=== PATIENT | female | born 1985 | race Caucasian/White ===

== ENCOUNTER 2017-02-05 18:14 | Emergency (ER) | payer SELFPAY ==
[~2017-02-05] VITALS: Ht 149.9 cm; Wt 77.1 kg
--- NOTE | 2017-02-05 18:20 | NUR ---
alexis nicolea a grocery store due to non traumatic left leg pain since today, 04/25, non radiating. Patient is aao3. Appears in no apparent distress, respiration even and unalbored. skin is warm to touch and non dipahoretic. afebrile. vss. gowned and placed in tele monitor.
[2017-02-05] MEDS ORDERED: KETOROLAC TROMETHAMINE INJ 60 MG/2 ML VIAL IM ONE ×2 (18:30)
[2017-02-05] MEDS ORDERED: HYDROCODONE/APAP 5/325MG 1 EACH TABLET ONE (18:30)
[2017-02-05] MEDS ORDERED: HYDROCODONE/APAP 5/325MG 1 EACH TABLET PO ONE (18:30)
--- NOTE | 2017-02-05 18:40 | NUR ---
medicated pt as ordered
[2017-02-05 18:46] VITALS: BP 102/54
--- NOTE | 2017-02-05 18:46 | NUR ---
Patient discharged to home in stable condition. Written and verbal after care instructions given. Patient verbalizes understanding of instruction.
[2017-02-06] MEDS ORDERED: DORZ10DR13 LEFTEYE (16:05)
[2017-02-06] MEDS ORDERED: PRED5TAB48 PO (16:05)
[2017-02-06] MEDS ORDERED: BRIM5DRO3 LEFTEYE (16:05)
[2017-02-06] MEDS ORDERED: PRED5DRO7 EACHEYE (16:05)
== END 2017-02-05 18:48 | disposition home or self-care (01) ==
LOC: ER 18:17
DX: M79.1 Myalgia (principal); G89.29 Other chronic pain; H57.12 Ocular pain, left eye; Z88.2 Allergy status to sulfonamides; Z88.6 Allergy status to analgesic agent; F17.210 Nicotine dependence, cigarettes, uncomplicated; F10.20 Alcohol dependence, uncomplicated
CPT/HCPCS: 96372; 99283; A4606; J1885; Z7610

== ENCOUNTER 2017-02-05 23:38 | Inpatient (IN) | payer MEDICAID ==
[~2017-02-05] VITALS: Ht 149.9 cm; Wt 79.4 kg
--- NOTE | 2017-02-05 23:54 | NUR ---
31 yo female bb self. pt is alert x 3, c/o upper abd pain with nausea. pt ambulated to er bed with steady gait, skin warm and dry, rr even and unlabored. pt gowned,placed on color television console monitor. awaiting orders from provider, will continue to monitor
[2017-02-06] MEDS ORDERED: MORPHINE SULFATE INJ 2 MG/ML DISP.SYRIN ONE (00:07)
[2017-02-06] MEDS ORDERED: MORPHINE SULFATE INJ 4 MG/ML DISP.SYRIN ONE (00:08)
[2017-02-06] MEDS ORDERED: IV NS 0.9% 1,000 ML ONE ×2 (00:08→03:30)
[2017-02-06] MEDS ORDERED: ONDANSETRON HCL/PF 4 MG/2 ML VIAL ONE ×4 (00:08→06:15)
[2017-02-06] MEDS ORDERED: MORPHINE SULFATE INJ 2 MG/ML DISP.SYRIN IV ONE (00:30)
[2017-02-06] MEDS ORDERED: ONDANSETRON HCL/PF 4 MG/2 ML VIAL IVP ONE (00:30)
[2017-02-06] MEDS ORDERED: IV NS 0.9% 1,000 ML BAG IV ONE ×2 (00:30→03:30)
--- NOTE | 2017-02-06 00:44 | NUR ---
22G RIGHT WRIST IV STARTED. MEDICATED PT ORDERED
[2017-02-06 00:49] LABS: BASOPHILS % (AUTO) 0.4 % (0.0-2.0); EOSINOPHILS # (AUTO) 0.2 /CMM (0.0-0.7); EOSINOPHILS % (AUTO) 2.4 % (0.0-6.0); HEMATOCRIT 35 % (33-45); HEMOGLOBIN 11.5 g/dL (11.5-14.8); LYMPHOCYTES # (AUTO) 2.4 /CMM (0.8-4.8); LYMPHOCYTES % (AUTO) 25.7 % (20.0-44.0); MEAN CORPUSCULAR HEMOGLOBIN 26 PG (26.0-33.0); MEAN CORPUSCULAR HGB CONC 32 g/dl (31.0-36.0); MEAN CORPUSCULAR VOLUME 79 fL (82-100); MONOCYTES # (AUTO) 1.1 /CMM (0.1-1.30); MONOCYTES % (AUTO) 11.3 % (2.0-12.0); NEUTROPHILS # (AUTO) 5.6 /CMM (1.8-8.9); NEUTROPHILS % (AUTO) 60.2 % (43.0-81.0); PLATELET COUNT (AUTO) 328 /CMM (150-450); RDW COEFFICIENT OF VARIATION 16.7 (11.5-15.0); WHITE BLOOD COUNT (AUTO) 9.4 K/uL (4.3-11.0)
[2017-02-06 00:56] LABS: APPEARANCE,URINE TURBID (CLEAR); BILIRUBIN,URINE 1+ (NEGATIVE); BLOOD, URINE NEGATIVE Ery/uL (NEGATIVE); COLOR,URINE DARK YELLO (YELLOW); KETONES,URINE 1+ (NEGATIVE); LEUKOCYTE ESTERASE ,URINE NEGATIVE (NEGATIVE); NITRITE, URINE NEGATIVE (NEGATIVE); PH,URINE 5.5 (5.0-8.0); PROTEIN,URINE TRACE mg/dl (NEGATIVE); UGLUCOSE NEGATIVE (NEGATIVE); UROBILINOGEN,URINE 0.2 EU/dL (0.2)
[2017-02-06 01:01] LABS: CALCIUM, SERUM 8.7 mg/dL (8.5-10.1); CREATININE 1.1 mg/dL (0.6-1.3); POTASSIUM 3.6 mmol/L (3.5-5.1)
[2017-02-06 01:03] LABS: PREGNANCY TEST URINE QUAL NEGATIVE (NEGATIVE)
[2017-02-06 01:07] LABS: BACTERIA,URINE None seen /HPF (None Seen); MUCUS,URINE Few /LPF (None Seen); RBC,URINE 0-3 /HPF (0-2); SQUAMOUS EPITHELIAL CELL,UR Few /HPF (None Seen)
[2017-02-06 01:10] LABS: ALBUMIN 3.1 g/dL (3.4-5.0); BILIRUBIN,DIRECT 0.1 mg/dL (0.0-0.2); BILIRUBIN,TOTAL 0.4 mg/dL (0.2-1.0); TOTAL PROTEIN, SERUM 6.7 g/dL (6.4-8.2)
[2017-02-06 01:11] LABS: PROTHROMBIN TIME 10.7 SECS (9.5-12.7)
[2017-02-06] MEDS ORDERED: HYDROMORPHONE 1 MG/1 ML DISP.SYRIN ONE (03:01)
[2017-02-06] MEDS ORDERED: IV SET PRIMARY PUMP SET 1 EA INFUS.SET MC ONE ×2 (03:30→10:33)
[2017-02-06] MEDS ORDERED: HYDROMORPHONE 1 MG/1 ML DISP.SYRIN IV ONE (03:30)
[2017-02-06] MEDS ORDERED: ONDANSETRON HCL/PF 4 MG/2 ML VIAL IV ONE ×2 (03:30→06:30)
[2017-02-06] MEDS ORDERED: IOHEXOL-300 100 ML VIAL IV ONE (03:41)
[2017-02-06] MEDS ORDERED: IV NS 0.9% 250 ML IV ONE (03:41)
--- NOTE | 2017-02-06 03:45 | NUR ---
MEDICATED PT ORDERED
[2017-02-06] MEDS ORDERED: BARIUM SULFATE SUSP 450 ML BOTTLE PO ONE (03:55)
[2017-02-06] MEDS ORDERED: LORAZEPAM INJ 2 MG/ML VIAL ONE (04:09)
--- NOTE | 2017-02-06 05:30 | NUR ---
PT TRANSPORTED TO CT VIA GURNEY BY RADIOLOGY TEAM
--- NOTE | 2017-02-06 06:06 | NUR ---
YARDER BOSS NEYDA TAVARES
[2017-02-06] MEDS ORDERED: PANTOPRAZOLE 40 MG VIAL ONE (06:15)
--- NOTE | 2017-02-06 06:15 | NUR ---
REPORT GIVEN TO MS JERRY FOR TRACY
--- NOTE | 2017-02-06 06:23 | NUR ---
PT TRANSPORTED TO MS ROOM 208 WITHOUT INCIDENT
[2017-02-06] MEDS ORDERED: PANTOPRAZOLE 40 MG VIAL IV ONE (06:30)
[2017-02-06] MEDS ORDERED: MAG HYDROX/AL HYDROX/SIMETH 30 ML UDC PO PRN (07:00)
[2017-02-06] MEDS ORDERED: Z GUARD REMEDY 2 OZ OINT TP PRN (07:00)
[2017-02-06] MEDS ORDERED: HYDROCODONE/APAP 5/325MG 1 EACH TABLET PO PRN (07:00)
[2017-02-06] MEDS ORDERED: ZOLPIDEM TARTRATE 5 MG TABLET PO PRN (07:00)
[2017-02-06] MEDS: PANTOPRAZOLE 40 MG TABLET.DR PO SCH (07:30)
--- NOTE | 2017-02-06 07:30 | NUR ---
AM RN NOTE Received patient awake, A/O X3 verbally responsive. Report given by previous shift RN that pt came in to unit @ 0648. Denies any pain at this time. IV site intact and patent. Will continue to monitor.
[2017-02-06 08:00] VITALS: BP 120/70
[2017-02-06 08:17] LABS: BASOPHILS % (AUTO) 0.4 % (0.0-2.0); EOSINOPHILS # (AUTO) 0.2 /CMM (0.0-0.7); EOSINOPHILS % (AUTO) 2.8 % (0.0-6.0); HEMATOCRIT 34 % (33-45); LYMPHOCYTES # (AUTO) 1.6 /CMM (0.8-4.8); LYMPHOCYTES % (AUTO) 20.5 % (20.0-44.0); MEAN CORPUSCULAR HEMOGLOBIN 26 PG (26.0-33.0); MEAN CORPUSCULAR HGB CONC 33 g/dl (31.0-36.0); MEAN CORPUSCULAR VOLUME 79 fL (82-100); MONOCYTES # (AUTO) 0.7 /CMM (0.1-1.30); MONOCYTES % (AUTO) 8.8 % (2.0-12.0); NEUTROPHILS # (AUTO) 5.2 /CMM (1.8-8.9); NEUTROPHILS % (AUTO) 67.5 % (43.0-81.0); PLATELET COUNT (AUTO) 269 /CMM (150-450); RDW COEFFICIENT OF VARIATION 17.1 (11.5-15.0); RED BLOOD CELL COUNT(AUTO) 4.22 MIL/uL (4.0-5.2); WHITE BLOOD COUNT (AUTO) 7.7 K/uL (4.3-11.0)
[2017-02-06 08:33] LABS: CREATININE 0.9 mg/dL (0.6-1.3); MAGNESIUM 1.7 mg/dL (1.8-2.4); PHOSPHORUS 3.8 mg/dL (2.5-4.9); POTASSIUM 3.7 mmol/L (3.5-5.1)
[2017-02-06] MEDS: IV NS 0.9% 1,000 ML IV PRN (10:44)
[2017-02-06] MEDS ORDERED: SECONDARY IV SET 1 EA INFUS.SET MC ONE (11:57)
[2017-02-06] MEDS: Magnesium 1GM/D5W 100ML PREMIX 100 ML IV SCH ×2 (12:01→14:43)
--- NOTE | 2017-02-06 13:15 | NUR ---
AM RN NOTE Patient seen and assessed by Dr. Kwan () with new orders. Patient stated she will sign consent after taking a shower. Pt went to take a shower as approved by Dr. Ham.
--- NOTE | 2017-02-06 14:22 | NUR ---
AM RN NOTE Pt continued to take shower at this time.
--- NOTE | 2017-02-06 15:30 | NUR ---
AM RN NOTE Pt awake, A/O X3. Attempted to insert NG tube but pt refused. Called Dr. Mays (GI) made aware that pt refusing NG Tube insertion with NNO at this time.
[2017-02-06] MEDS: HYDROMORPHONE 1 MG/1 ML DISP.SYRIN IV PRN (15:45)
[2017-02-06 16:00] VITALS: BP 126/71
[2017-02-06] MEDS ORDERED: PRED5TAB48 PO (16:05)
[2017-02-06] MEDS ORDERED: PRED5DRO7 EACHEYE (16:05)
[2017-02-06] MEDS ORDERED: BRIM5DRO3 LEFTEYE (16:05)
[2017-02-06] MEDS ORDERED: DORZ10DR13 LEFTEYE (16:05)
--- NOTE | 2017-02-06 16:20 | NUR ---
AM RN NOTE Reconcile meds entered and Dr. Ham made aware. Pt's medications given to Eda @ pharmacy.
[2017-02-06] MEDS: ONDANSETRON HCL/PF 4 MG/2 ML VIAL IVP PRN (16:29)
--- NOTE | 2017-02-06 17:00 | NUR ---
AM RN NOTE Patient signed consent for EGD & Anesthesia.
[2017-02-06] MEDS: TIMOLOL MAL/DORZOLAM HCL OPHTH 10 ML BOTTLE LEFTEYE SCH (18:03)
[2017-02-06] MEDS: BRIMONIDINE TARTRATE OPHT SOLN 5 ML BOTTLE LEFTEYE SCH (18:04)
[2017-02-06] MEDS: prednisoLONE ACET 1% OPHT DROP 5 ML BOTTLE EACHEYE SCH ×2 (18:05→20:27)
--- NOTE | 2017-02-06 18:20 | NUR ---
AM RN NOTE Patient awake, noted with temp 100.1 @ 1745 cooling measures done. Re-checked temp at this time with 101.[address] Ham with his exchange, awaiting for call back.
--- NOTE | 2017-02-06 18:29 | NUR ---
AM RN NOTE Received call from Dr. Ham with new order for Tylenol suppository x1 now.
[2017-02-06] MEDS ORDERED: ACETAMINOPHEN 650 MG/SUPP.RECT RC ONE (18:30)
--- NOTE | 2017-02-06 18:45 | NUR ---
AM RN NOTE Tylenol suppository given, will continue to monitor.
[2017-02-06 20:00] VITALS: BP 107/51
[2017-02-07] MEDS: ONDANSETRON HCL/PF 4 MG/2 ML VIAL IVP PRN ×2 (03:05→08:54)
[2017-02-07] MEDS: HYDROMORPHONE 1 MG/1 ML DISP.SYRIN IV PRN ×4 (03:05→14:10)
--- NOTE | 2017-02-07 04:30 | NUR ---
MS RN NOTES PT STATES "MY IV WAS SWOLLEN AND I DIDN'T GET MY MEDICINE." CALLED LISA GUSMAN LEGUILLON DEBEADER FOR [facility] PT REQUESTING FOR ANOTHER SHOT OF DILAUDID AND ZOFRAN AFTER HER 3 AM DOSE. AWAITING FOR RESPONSE.
--- NOTE | 2017-02-07 05:00 | NUR ---
MS RN NOTES CALLED LISA GUSMAN AGAIN RE PT REQUESTING FOR ANOTHER SHOT OF DILAUDID AND ZOFRAN. SPOKE WITH LISA GUSMAN. NO NEW ORDERS FOR PAIN AND NAUSEA MEDICINE AT THIS TIME. PT MADE AWARE. WILL CONTINUE TO MONITOR.
--- NOTE | 2017-02-07 06:31 | NUR ---
MS RN NOTES AWAKE & RESPONSIVE. NOT IN ANY DISTRESS. NO SOB NOTED. DENIES ANY PAIN OR DISCOMFORT AT THIS TIME. KEPT ON NPO WITH IVF INFUSING WELL. MONITORED ACCORDINGLY. CALL LIGHT WITHIN REACH. BED IN LOWEST POSITION. SR UP X 2 FOR SAFETY. WILL ENDORSE TO NEXT SHIFT.
--- NOTE | 2017-02-07 07:25 | NUR ---
MS RN OPENING NOTES RECEIVED PT. FROM NIGHTSHIFT NURSE IN STABLE CONDITION. NO SOB OR SIGNS OF DISTRESS NOTED. IV INTACT AND PATENT. NO REDNESS OR INFILTRATION NOTED. CURRENTLY AWAITING EGD PROCEDURE. PT. REPORTS NAUSEA. WILL ADMINISTER ZOFRAN 4MG ORDERED. BD IN LOW LOCKED POSITION, SIDE RAILS UP X2, CALL LIGHT WITHIN REACH. WILL CONTINUE TO MONITOR.
[2017-02-07] MEDS: PANTOPRAZOLE 40 MG TABLET.DR PO SCH (07:30)
[2017-02-07 07:51] LABS: BASOPHILS % (AUTO) 0.2 % (0.0-2.0); EOSINOPHILS # (AUTO) 0.2 /CMM (0.0-0.7); EOSINOPHILS % (AUTO) 1.7 % (0.0-6.0); HEMATOCRIT 37 % (33-45); HEMOGLOBIN 12.2 g/dL (11.5-14.8); LYMPHOCYTES # (AUTO) 1.5 /CMM (0.8-4.8); LYMPHOCYTES % (AUTO) 15.1 % (20.0-44.0); MEAN CORPUSCULAR HEMOGLOBIN 25 PG (26.0-33.0); MEAN CORPUSCULAR HGB CONC 33 g/dl (31.0-36.0); MEAN CORPUSCULAR VOLUME 77 fL (82-100); MONOCYTES # (AUTO) 0.9 /CMM (0.1-1.30); MONOCYTES % (AUTO) 9.2 % (2.0-12.0); NEUTROPHILS # (AUTO) 7.1 /CMM (1.8-8.9); NEUTROPHILS % (AUTO) 73.8 % (43.0-81.0); PLATELET COUNT (AUTO) 305 /CMM (150-450); RDW COEFFICIENT OF VARIATION 17.1 (11.5-15.0); WHITE BLOOD COUNT (AUTO) 9.7 K/uL (4.3-11.0)
[2017-02-07 08:00] VITALS: BP 114/67
[2017-02-07 08:04] LABS: CALCIUM, SERUM 8.6 mg/dL (8.5-10.1); CREATININE 0.8 mg/dL (0.6-1.3); PHOSPHORUS 3.3 mg/dL (2.5-4.9)
[2017-02-07 08:27] VITALS: BP 114/67
[2017-02-07] MEDS: BRIMONIDINE TARTRATE OPHT SOLN 5 ML BOTTLE LEFTEYE SCH ×2 (08:55→18:12)
[2017-02-07] MEDS: TIMOLOL MAL/DORZOLAM HCL OPHTH 10 ML BOTTLE LEFTEYE SCH ×2 (08:55→18:10)
[2017-02-07] MEDS: prednisoLONE ACET 1% OPHT DROP 5 ML BOTTLE EACHEYE SCH ×4 (09:00→21:08)
[2017-02-07] MEDS: predniSONE 5 MG TABLET PO SCH (09:00)
--- NOTE | 2017-02-07 09:03 | NUR ---
MS RN NOTES PT. TAKEN DOWN IN STABLE CONDITION FOR SCHEDULED EGD
[2017-02-07] MEDS ORDERED: SUCCINYLCHOLINE CHLORIDE 20 MG/ML VIAL ONE (09:08)
--- NOTE | 2017-02-07 10:01 | NUR ---
MS RN NOTES PT. BACK FROM EGD IN STABLE CONDITION. ORDERS TO RESUMES REGULAR DIET AND ALL ORDERS PRIOR TO PROCEDURE.
--- NOTE | 2017-02-07 10:43 | NUR ---
MS RN NOTES PT.S 0900 STEROID EYE DROPS WENT MISSING FROM PT.'S CASSETTE. PHARMACY WAS CALLED 2X AND STATES THEY WILL DELIVER IT. WILL F/U
[2017-02-07] MEDS: IV NS 0.9% 1,000 ML IV PRN (11:29)
--- NOTE | 2017-02-07 12:04 | NUR ---
MS RN NOTES PT. COMPLAINS OF NAUSEA. NO EMESIS PRESENT AT THIS TIME. SHE ALSO COMPLAINED OF INCREASE FEVER. TEMPERATURE WAS CHECKED AND WAS 99.8. IT WAS RECHECKED AND IS NOW 100.8. TYLENOL WAS OFFERED TO PT. BU SHE REFUSES AT THIS TIME AND STATES THAT IT WILL MAKE HER THROW UP. DR. MARSHALL WAS MADE AWARE AND ORDERED THAT I CHANGE HER ZOFRAN 4MG FROM Q6 TO Q4. FOR THE RISE IN TEMPERATURE, HE SAYS "CONTINUE TO MONITOR". WILL CONTINUE TO MONITOR AND CARRY OUT ORDERS
[2017-02-07] MEDS ORDERED: ONDANSETRON HCL/PF 4 MG/2 ML VIAL IVP PRN (13:00)
[2017-02-07] MEDS ORDERED: ANESTHESIA TRAY IN PYXIS 1 EA TRAY MC ONE (14:01)
[2017-02-07] MEDS: ACETAMINOPHEN 325 MG TABLET PO PRN (15:15)
[2017-02-07 16:04] VITALS: BP 93/45
--- NOTE | 2017-02-07 19:35 | NUR ---
MS RN CLOSING NOTES PT. IN STABLE CONDITION. ALL NEEDS MET AND ORDERS CARRIED OUT ACCORDINGLY. CURRENT IV IS INFILTRATED. WILL ENDORSE TO NIGHTSHIFT NURSE FOR TRACY AND REINSERTION OF IV.
--- NOTE | 2017-02-07 19:35 | NUR ---
MS RN NOTES RECEIVED PT IN BED, AWAKE, A/O X 4. VERBALLY RESPONSIVE. STABLE AT THIS TIME. NO DISTRESS, NO SOB NOTED. RESPIRATION IS EVEN AND UNLABORED. ON REGULAR DIET TOLERATED WELL. ALL NEEDS ATTENDED. CALL LIGHT WITHIN REACH. SAFETY PRECAUTIONS OBSERVED. WILL CONTINUE TO MONITOR.
--- NOTE | 2017-02-07 21:00 | NUR ---
ATTEMPTED TO INSERT IV ON LEFT HAND AND RIGHT HAND X 3 ATTEMPT , UNSUCCESSFUL. CALLED BENEFITS CONSULTING ANALYST TO START IV , PER HERIBERTO HE'LL BE HERE SOON.
--- NOTE | 2017-02-07 21:10 | NUR ---
LAURA LOUIS RN ATTEMPTED TO INSERT IV ON PT'S LEFT HAND, UNSUCCESSFUL. PT REFUSED TO HAVE AN IV STARTED ON BILATERAL ANTECUBITAL AND UPPER ARM, RISK AND BENEFITS EXPLAINED, PT STILL REFUSES TO HAVE AN IV STARTED ON THE ANTECUBITAL, AND UPPER ARM. PT JUST WANTED TO HAVE AN IV INSERTED ON HER HAND. PLACED A CALL TO ICU FOR IV INSERTION. JERRY CARRINGTON WILL BE HERE SOON.
[2017-02-07 22:00] VITALS: BP 92/54
--- NOTE | 2017-02-07 22:00 | NUR ---
JERRY CARRINGTON AND JERRY CLEMENTS ATTEMPTED TO INSERT IV ON THE PATIENT, UNSUCCESSFUL. PT REFUSED IV INSERTION AT ALL. RISK AND BENEFITS EXPLAINED. PT STILL REFUSED. WILL ASK PT AGAIN LATER. PT IS ON REGULAR DIET , ENCOURAGED FLUID INTAKE.
--- NOTE | 2017-02-08 00:15 | NUR ---
MS RN NOTES PT ASLEEP AT THIS TIME, STABLE. AROUSES EASILY. NO C/O PAIN OR DISCOMFORT AT THIS TIME. SITTER AT ED SIDE . WILL CONT TO MONITOR.
[2017-02-08] MEDS: ACETAMINOPHEN 325 MG TABLET PO PRN (04:04)
--- NOTE | 2017-02-08 06:24 | NUR ---
MS RN NOTES PT IN BED, ASLEEP AT THIS TIME, AROUSES EASILY. A/O X 4. VERBALLY RESPONSIVE. STABLE AT THIS TIME. NO DISTRESS, NO SOB NOTED. RESPIRATION IS EVEN AND UNLABORED. ON REGULAR DIET TOLERATED WELL. ALL NEEDS ATTENDED. NO C/O PAIN OR DISCOMFORT AT THIS TIME. CALL LIGHT WITHIN REACH. SITTER AT BED SIDE. SAFETY PRECAUTIONS OBSERVED. WILL ENDORSE TO NEXT SHIFT FOR TRACY.
--- NOTE | 2017-02-08 07:10 | NUR ---
RN MS NOTES PATIENT IN BED, ALERT AND ORIENTED, NO DISTRESS NOTED, NO S/SX OF PAIN, ENDORSED BY SCRAP HANDLERTHERMOFORMING MACHINE OPERATOR, PATIENT REFUSED IV TO BE INSERTED ON BILATERAL ARMS, WILL OFFER IV INSERTION LATER, NEEDS ATTENDED AND MET, CALL LIGHT WITHIN REACH, WILL CONTINUE TO MONITOR.
[2017-02-08 08:00] VITALS: BP 95/57
[2017-02-08] MEDS: predniSONE 5 MG TABLET PO SCH (08:22)
[2017-02-08] MEDS: PANTOPRAZOLE 40 MG TABLET.DR PO SCH (08:22)
[2017-02-08] MEDS: prednisoLONE ACET 1% OPHT DROP 5 ML BOTTLE EACHEYE SCH ×2 (08:24→14:02)
[2017-02-08] MEDS: TIMOLOL MAL/DORZOLAM HCL OPHTH 10 ML BOTTLE LEFTEYE SCH (08:25)
[2017-02-08] MEDS: BRIMONIDINE TARTRATE OPHT SOLN 5 ML BOTTLE LEFTEYE SCH (08:25)
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
--- NOTE | 2017-02-08 16:15 | NUR ---
RN MS NOTES RECEIVED DISCHARGE ORDER FROM DR. MARSHALL, PATIENT AWARE AND SPOKE WITH LAND TITLE EXAMINER, PATIENT RECEIVED DISCHARGE INSTRUCTIONS AND VERBALIZED UNDERSTANDING, DISCHARGE PAPERWORKS DONE AND SIGNED, MEDICATIONS GIVEN BACK TO THE PATIENT ALONG WITH THE PRESCRIPTION OF ZOFRAN, SKIN ASSESSMENT COMPLETED, SKIN INTACT, NEEDS ATTENDED AND MET, RECEIVED BUS TOKENS FROM MARINE TECHNICIAN, PATIENT REFUSED ALL LAB DRAWN TODAY, PATIENT LEFT THE FACILITY VIA BUS, IN STABLE CONDITION.
== END 2017-02-08 16:15 | disposition home or self-care (01) | DRG 249 ==
LOC: ER 23:38 → MEDSG2 02-06 06:21
PROVIDERS: ADMIT Nurse Practitioner Acute Care; ATTEND Nurse Practitioner Acute Care
PROC: 0DJ08ZZ Inspection of Upper Intestinal Tract, Via Natural or Artificial Opening Endoscopic (ICD-10-PCS; principal; 2017-02-07 09:35)
DX: A08.4 Viral intestinal infection, unspecified (principal); E66.9 Obesity, unspecified; F90.9 Attention-deficit hyperactivity disorder, unspecified type; M08.00 Unspecified juvenile rheumatoid arthritis of unspecified site; M79.7 Fibromyalgia; Z59.0 Homelessness; R79.89 Other specified abnormal findings of blood chemistry; Z68.35 Body mass index [BMI] 35.0-35.9, adult
CPT/HCPCS: 36415; 80048-TC; 80061-TC; 80076-TC; 81000-TC; 83690-TC; 83735-TC; 84100-TC; 84703-TC; 85025-TC; 85730-TC; 87081-TC; 94799-TC; A4606; C9113; J0330; J1170; J2060; J2270; J2405; J2704; J3475; J7030; J7050; J7512; Q9967; Z7610

== ENCOUNTER 2017-02-08 18:23 | Emergency (ER) | payer MEDICAID ==
[~2017-02-08] VITALS: Ht 149.9 cm; Wt 79.4 kg
[~2017-02-08 18:23] MED LIST: BRIM5DRO3 LEFTEYE; DORZ10DR13 LEFTEYE; PRED5DRO7 EACHEYE; PRED5TAB48 PO
--- NOTE | 2017-02-08 18:25 | NUR ---
AAOX3, BIB [address] [facility],JUST DISCHAGED FROM MS FLOOR,CALLED 911 FROM A BUS STOP TELLING EMS THAT SHE HAS NO PLACE TO STAY AND THAT SHE IS STILL HAVING ABD PAIN. RESP IS EVEN AND UNLABORED WITH NAD NOTE. SKIN IS WARM AND DRY. AFEBRILE. AWAITING MD FOR EVAL.
--- NOTE | 2017-02-08 19:08 | NUR ---
RECEIVED REPORT FROM JERRY JUSTIN FOR TRACY. PAC [place] AT BEDSIDE FOR EVAL.
[2017-02-08] MEDS ORDERED: ONDANSETRON 4 MG TAB.RAPDIS ONE (19:21)
[2017-02-08] MEDS ORDERED: HYDROCODONE/APAP 10/325MG 1 EA TABLET ONE (19:22)
[2017-02-08] MEDS: ONDANSETRON 4 MG TAB.RAPDIS SL ONE (19:27)
--- NOTE | 2017-02-08 19:27 | NUR ---
LAB AT BEDSIDE FOR BLOOD DRAW.
[2017-02-08] MEDS: HYDROCODONE/APAP 10/325MG 1 EA TABLET PO ONE (19:28)
[2017-02-08 19:37] LABS: APPEARANCE,URINE Clear (CLEAR); BLOOD, URINE Negative Ery/uL (NEGATIVE); COLOR,URINE Yellow (YELLOW); KETONES,URINE Trace (NEGATIVE); LEUKOCYTE ESTERASE ,URINE Negative (NEGATIVE); NITRITE, URINE Negative (NEGATIVE); PROTEIN,URINE 30 mg/dl (NEGATIVE); UGLUCOSE Negative (NEGATIVE)
[2017-02-08] MEDS ORDERED: ALBUTEROL FS 2.5 MG/3 ML VIAL.NEB ONE (19:37)
[2017-02-08] MEDS ORDERED: IPRATROPIUM NEB FS 0.5 MG/2.5 ML AMPUL.NEB ONE (19:37)
[2017-02-08 19:38] LABS: BILIRUBIN,URINE SMALL (NEGATIVE)
[2017-02-08] MEDS: IPRATROPIUM NEB FS 0.5 MG/2.5 ML AMPUL.NEB NEB ONE (19:38)
[2017-02-08] MEDS: ALBUTEROL FS 2.5 MG/3 ML VIAL.NEB CONTNEB ONE (19:38)
--- NOTE | 2017-02-08 19:38 | NUR ---
LAB UNABLE TO DRAW BLOOD, PAC NEO AWARE.
[2017-02-08 19:48] LABS: RBC,URINE 0-2 /HPF (0-2)
[2017-02-08 19:49] LABS: ADD URINE CULTURE NO; BACTERIA,URINE Few /HPF (None Seen); SQUAMOUS EPITHELIAL CELL,UR Moderate /HPF (None Seen)
--- NOTE | 2017-02-08 20:18 | NUR ---
IV STARTED ON RIGHT FA 22G, BLOOD DRAWN. CALLED LAB FOR ELECTION WATCHER.
[2017-02-08 20:28] LABS: BASOPHILS % (AUTO) 0.2 % (0.0-2.0); EOSINOPHILS # (AUTO) 0.1 /CMM (0.0-0.7); EOSINOPHILS % (AUTO) 0.8 % (0.0-6.0); HEMATOCRIT 38 % (33-45); HEMOGLOBIN 12.3 g/dL (11.5-14.8); LYMPHOCYTES # (AUTO) 1.6 /CMM (0.8-4.8); LYMPHOCYTES % (AUTO) 22.3 % (20.0-44.0); MEAN CORPUSCULAR HEMOGLOBIN 25 PG (26.0-33.0); MEAN CORPUSCULAR HGB CONC 32 g/dl (31.0-36.0); MEAN CORPUSCULAR VOLUME 78 fL (82-100); MONOCYTES # (AUTO) 0.9 /CMM (0.1-1.30); MONOCYTES % (AUTO) 12.4 % (2.0-12.0); NEUTROPHILS # (AUTO) 4.4 /CMM (1.8-8.9); NEUTROPHILS % (AUTO) 64.3 % (43.0-81.0); PLATELET COUNT (AUTO) 328 /CMM (150-450); RDW COEFFICIENT OF VARIATION 15.7 (11.5-15.0); RED BLOOD CELL COUNT(AUTO) 4.88 MIL/uL (4.0-5.2)
--- NOTE | 2017-02-08 20:30 | NUR ---
XRAY AT BEDSIDE
[2017-02-08 20:38] LABS: CALCIUM, SERUM 9.3 mg/dL (8.5-10.1); CREATININE 0.8 mg/dL (0.6-1.3); POTASSIUM 3.9 mmol/L (3.5-5.1)
[2017-02-08 20:44] LABS: ALBUMIN 3.1 g/dL (3.4-5.0); BILIRUBIN,DIRECT 0.1 mg/dL (0.0-0.2); BILIRUBIN,TOTAL 0.4 mg/dL (0.2-1.0); TOTAL PROTEIN, SERUM 7.2 g/dL (6.4-8.2)
--- NOTE | 2017-02-08 23:30 | NUR ---
Patient discharged by UZMA Berry in stable condition. Written and verbal after care instructions given. Patient verbalizes understanding of instruction. MICKEY LOPEZ noted on DC. Pt requested to sleep and speak with her social studies teacher in the morning. Requested granted by provider, but was informed that she may need to wait in the waiting room if the ED bed is required to care for another patient. Pt verbalized understanding and agreed to wait in the waiting room when required.
--- NOTE | 2017-02-09 01:30 | NUR ---
IV removed. Catheter intact and site benign. Pressure and 4x4 applied to site. No bleeding noted.
--- NOTE | 2017-02-09 03:30 | NUR ---
PT SLEEPING COMFORTABLY ON BED. AWAKENS TO NAME. DENIES COMPLAINT; RETURNS TO SLEEP. NAD NOTED.
[2017-02-09 05:10] VITALS: BP 109/44
--- NOTE | 2017-02-09 05:30 | NUR ---
PT SLEEPING COMFORTABLY ON BED. AWAKENS TO NAME. PT STATES SHE WILL GET DRESSED AND WAIT IN THE WAITING ROOM TO SPEAK WITH HER FAMILY MEDICINE PHYSICIAN IN THE MORNING.
--- NOTE | 2017-02-09 06:14 | NUR ---
pt ambulatory with a steady gait to waiting area. to wait for social services assistant.
== END 2017-02-09 02:00 | disposition home or self-care (01) ==
LOC: ER 18:23
DX: R10.30 Lower abdominal pain, unspecified (principal); J40 Bronchitis, not specified as acute or chronic; Z88.2 Allergy status to sulfonamides; Z88.6 Allergy status to analgesic agent; Z88.8 Allergy status to other drugs, medicaments and biological substances
CPT/HCPCS: 36415; 71010; 80048; 80076; 81001; 85025; 94640; 99285; A4606; Q0162; Z7610; 81000-TC

== ENCOUNTER 2017-02-09 07:38 | Emergency (ER) | payer MEDICAID ==
[~2017-02-09] VITALS: Ht 149.9 cm; Wt 77.1 kg
--- NOTE | 2017-02-09 07:45 | NUR ---
BIBSELF TO ED DUE ABDOMINAL PAIN, 5/10, SHARP PAIN. PATIENT IS AAO4., APPEARS IN NO APPARENT DISTRESS,.RESPIRATION EVEN AND UNLABORED. PATIENT WAS DISCHARGED FROM ED FOR THE SAME REASON THIS AM. PATIENT IS AFEBRILE. WILL CONT TO MONITOR
[2017-02-09] MEDS ORDERED: PANTOPRAZOLE 40 MG VIAL ONE (08:22)
[2017-02-09] MEDS ORDERED: ONDANSETRON HCL/PF 4 MG/2 ML VIAL ONE (08:22)
[2017-02-09] MEDS ORDERED: IV NS 0.9% 1,000 ML ONE (08:22)
[2017-02-09] MEDS ORDERED: IV SET PRIMARY PUMP SET 1 EA INFUS.SET MC ONE (08:22)
[2017-02-09] MEDS ORDERED: ONDANSETRON HCL/PF 4 MG/2 ML VIAL IVP ONE (08:30)
[2017-02-09] MEDS ORDERED: PANTOPRAZOLE 40 MG VIAL IV ONE (08:30)
[2017-02-09] MEDS ORDERED: IV NS 0.9% 1,000 ML BAG IV ONE (08:30)
[2017-02-09 08:37] LABS: BASOPHILS % (AUTO) 0.2 % (0.0-2.0); EOSINOPHILS # (AUTO) 0.2 /CMM (0.0-0.7); EOSINOPHILS % (AUTO) 2.4 % (0.0-6.0); HEMATOCRIT 37 % (33-45); HEMOGLOBIN 11.7 g/dL (11.5-14.8); LYMPHOCYTES # (AUTO) 1.2 /CMM (0.8-4.8); LYMPHOCYTES % (AUTO) 12.6 % (20.0-44.0); MEAN CORPUSCULAR HEMOGLOBIN 25 PG (26.0-33.0); MEAN CORPUSCULAR HGB CONC 32 g/dl (31.0-36.0); MEAN CORPUSCULAR VOLUME 79 fL (82-100); MONOCYTES # (AUTO) 0.8 /CMM (0.1-1.30); NEUTROPHILS # (AUTO) 7.4 /CMM (1.8-8.9); NEUTROPHILS % (AUTO) 76.8 % (43.0-81.0); PLATELET COUNT (AUTO) 327 /CMM (150-450); RDW COEFFICIENT OF VARIATION 17.1 (11.5-15.0); RED BLOOD CELL COUNT(AUTO) 4.65 MIL/uL (4.0-5.2); WHITE BLOOD COUNT (AUTO) 9.7 K/uL (4.3-11.0)
[2017-02-09 08:47] LABS: CREATININE 0.9 mg/dL (0.6-1.3); POTASSIUM 3.8 mmol/L (3.5-5.1)
--- NOTE | 2017-02-09 08:50 | NUR ---
LINE STERTED ON L WRIST G 20, BLOOD DRAWN FROM LINE AND SENT TO LAB
[2017-02-09 08:53] LABS: BILIRUBIN,DIRECT 0.1 mg/dL (0.0-0.2); BILIRUBIN,TOTAL 0.2 mg/dL (0.2-1.0); TOTAL PROTEIN, SERUM 7.1 g/dL (6.4-8.2)
[2017-02-09 10:19] VITALS: BP 120/70
== END 2017-02-09 10:38 | disposition home or self-care (01) ==
LOC: ER 07:40
DX: R10.9 Unspecified abdominal pain (principal); Z59.0 Homelessness; Z88.2 Allergy status to sulfonamides; Z88.6 Allergy status to analgesic agent; F10.20 Alcohol dependence, uncomplicated
CPT/HCPCS: 36415; 80048-TC; 80076-TC; 83690-TC; 85025-TC; A4606; C9113; J2405; J7030; Z7610

== ENCOUNTER 2018-10-08 00:40 | Emergency (ER) | payer OTHER ==
[~2018-10-08] VITALS: Ht 149.9 cm; Wt 81.6 kg
[~2018-10-08 00:40] MED LIST changes: +PRED5DRO16 EACHEYE; -PRED5DRO7 EACHEYE
--- NOTE | 2018-10-08 03:00 | NUR ---
PT BIBSELF COMPLAINING OF LOWER ABDOMINAL PAIN X2 WEEKS. PT DESCRIBES PAIN DULL AND ACHY. PT DENIES N/V/D, SOB, CHEST PAIN. PT AAOX4. RESPIRATIONS EVEN AND UNLABORED. SKIN WARM AND INTACT. NO ACUTE DISTRESS NOTED AT THIS TIME
--- NOTE | 2018-10-08 03:05 | NUR ---
MD AT BEDSIDE FOR EVALUATION
--- NOTE | 2018-10-08 03:10 | NUR ---
URINE COLLECTED AND SENT TO LAB
[2018-10-08] MEDS ORDERED: ONDANSETRON HCL/PF 4 MG/2 ML VIAL ONE (03:13)
[2018-10-08 03:19] LABS: APPEARANCE,URINE SL CLOUDY (CLEAR); BILIRUBIN,URINE NEGATIVE (NEGATIVE); BLOOD, URINE NEGATIVE Ery/uL (NEGATIVE); COLOR,URINE YELLOW (YELLOW); KETONES,URINE TRACE (NEGATIVE); LEUKOCYTE ESTERASE ,URINE NEGATIVE (NEGATIVE); NITRITE, URINE NEGATIVE (NEGATIVE); PROTEIN,URINE NEGATIVE (NEGATIVE); UGLUCOSE NEGATIVE (NEGATIVE); UROBILINOGEN,URINE 0.2 EU/dL (0.2)
[2018-10-08 03:26] LABS: BACTERIA,URINE Few /HPF (None Seen); RBC,URINE 0-2 /HPF (0-2); SQUAMOUS EPITHELIAL CELL,UR Many /HPF (None Seen); WBC,URINE 0-2 /HPF (0-3); YEAST,URINE Few /HPF (None Seen)
[2018-10-08] MEDS ORDERED: ONDANSETRON HCL/PF 4 MG/2 ML VIAL IVP ONE (03:30)
[2018-10-08] MEDS ORDERED: IV NS 0.9% 500 ML BAG IV ONE (03:30)
--- NOTE | 2018-10-08 03:41 | NUR ---
COGNOS BI ADMINISTRATOR AT BEDSIDE FOR BLOOD DRAW
[2018-10-08 04:02] LABS: BASOPHILS % (AUTO) 0.4 % (0.0-2.0); EOSINOPHILS % (AUTO) 2.4 % (0.0-6.0); HEMATOCRIT 34 % (33-45); HEMOGLOBIN 10.5 g/dL (11.5-14.8); LYMPHOCYTES # (AUTO) 1.8 /CMM (0.8-4.8); LYMPHOCYTES % (AUTO) 27.8 % (20.0-44.0); MEAN CORPUSCULAR HGB CONC 31 g/dl (31.0-36.0); MEAN CORPUSCULAR VOLUME 78 fL (82-100); MONOCYTES # (AUTO) 0.7 /CMM (0.1-1.30); MONOCYTES % (AUTO) 10.8 % (2.0-12.0); NEUTROPHILS # (AUTO) 3.7 /CMM (1.8-8.9); NEUTROPHILS % (AUTO) 58.6 % (43.0-81.0); PLATELET COUNT (AUTO) 260 /CMM (150-450); RED BLOOD CELL COUNT(AUTO) 4.34 MIL/uL (4.0-5.2); WHITE BLOOD COUNT (AUTO) 6.3 K/uL (4.3-11.0)
[2018-10-08 04:03] LABS: CALCIUM, SERUM 8.8 mg/dL (8.5-10.1); CREATININE 0.7 mg/dL (0.6-1.3); POTASSIUM 3.5 mmol/L (3.5-5.1)
[2018-10-08 04:10] LABS: BILIRUBIN,DIRECT 0.1 mg/dL (0.0-0.2); BILIRUBIN,TOTAL 0.2 mg/dL (0.2-1.0); TOTAL PROTEIN, SERUM 6.4 g/dL (6.4-8.2)
--- NOTE | 2018-10-08 04:23 | NUR ---
BROUGHT BY RADIOLOGY FOR CT
[2018-10-08] MEDS ORDERED: ACETAMINOPHEN 325 MG TABLET ONE (05:18)
--- NOTE | 2018-10-08 05:18 | NUR ---
PT C/O ABDOMINAL PAIN. INFORMED MD. PER VERBAL MD ORDER, ADMINISTERED TYLENOL 650MG PO X1 NOW.
--- NOTE | 2018-10-08 05:28 | NUR ---
Patient discharged to home in stable condition. Written and verbal after care instructions given. Patient verbalizes understanding of instruction. IV removed. Catheter intact and site benign. Pressure and 4x4 applied to site. No bleeding noted. Pt ambulatory with a steady gait
[2018-10-08] MEDS ORDERED: ACETAMINOPHEN 325 MG TABLET PO ONE (05:30)
[2018-10-08 05:31] VITALS: BP 132/78
== END 2018-10-08 05:31 | disposition home or self-care (01) ==
LOC: ER 00:40
DX: K85.90 Acute pancreatitis without necrosis or infection, unspecified (principal); K59.00 Constipation, unspecified; M19.90 Unspecified osteoarthritis, unspecified site; Z98.890 Other specified postprocedural states; Z88.2 Allergy status to sulfonamides; Z88.6 Allergy status to analgesic agent; Z60.2 Problems related to living alone; Z79.899 Other long term (current) drug therapy
CPT/HCPCS: 36415; 80048-TC; 80076-TC; 81000-TC; 83690-TC; 84703-TC; 85025-TC; J2405; J7040